=== PATIENT | female | born 1965 | race Caucasian/White ===

== ENCOUNTER 2017-08-09 05:05 | Inpatient (IN) | payer OTHER ==
[~2017-08-09] VITALS: Ht 162.6 cm; Wt 114.3 kg
--- NOTE | 2017-08-09 05:16 | NUR ---
MS RN ADMITTING NOTES: ADMITTED A 51 YO FEMALE PATIENT WHO CAME TO UNIT FOR SCHEDULED DAY SURGERY WITH DR BARTHOLOMEW : RIGHT TOTAL KNEE ARTHROPLASTY. PATIENT IS AOX4, ON ROOM AIR, BREATHING EVEN AND UNLABORED. APPEARS CALM AND IN NO DISTRESS. AMBULATORY. CONSENT FORMS SIGNED. ORIENTED TO UNIT. WILL CONT TO MONITOR.
[2017-08-09 05:20] VITALS: BP 134/64
[2017-08-09] MEDS ORDERED: CEFAZOLIN 1 GM ONE ×2 (05:22→05:51)
--- NOTE | 2017-08-09 05:45 | NUR ---
INSERTED RAC G20 HEPLOCK, WITH GOOD BLOOD RETURN.
[2017-08-09] MEDS ORDERED: KETOROLAC TROMETHAMINE INJ 30 MG/ML VIAL ONE (05:46)
[2017-08-09] MEDS ORDERED: BACITRACIN 50000 UNITS/VIAL ONE (05:46)
[2017-08-09] MEDS ORDERED: ANESTHESIA TRAY IN PYXIS 1 EA TRAY MC ONE ×2 (05:46→06:02)
[2017-08-09] MEDS ORDERED: ACETAMINOPHEN 325 MG TABLET PO STA (06:03)
[2017-08-09] MEDS ORDERED: ACETAMINOPHEN 325 MG TABLET ONE (06:09)
[2017-08-09] MEDS ORDERED: oxyCODONE IR immediate release 5 MG CAPSULE ONE (06:10)
[2017-08-09] MEDS ORDERED: CELECOXIB 100 MG CAPSULE ONE (06:10)
--- NOTE | 2017-08-09 06:10 | NUR ---
DR MONTOYA AT BEDSIDE, ASSESSED PATIENT. ORDERED FOR ACETAMINOPHEN 650 MG PO, CELEBREX 200 MG PO AND OXYCODONE IR 10 MG PO WITH SMALL SIP OF WATER. NOTED AND CARRIED OUT.
--- NOTE | 2017-08-09 06:15 | NUR ---
PATIENT WAS BROUGHT TO OR BY DR MONTOYA AND IGNACIO DAVID IN STABLE CONDITION.
[2017-08-09] MEDS ORDERED: MIDAZOLAM HCL 2 MG/2ML VIAL ONE (06:29)
[2017-08-09] MEDS ORDERED: oxyCODONE IR immediate release 5 MG CAPSULE PO PRN (06:30)
[2017-08-09] MEDS ORDERED: CELECOXIB 100 MG CAPSULE PO SCH (06:30)
[2017-08-09] MEDS ORDERED: TRANEXAMIC ACID 3,000 MG in SODIUM CHLORIDE IRRIG SOLUTION 70 ML IR ONE (07:30)
--- NOTE | 2017-08-09 07:30 | NUR ---
MS RN NOTES RECEIVED REPORT FROM NARESH MARQUEZ. PATIENT STILL IN THE OR FOR SURGERY-RIGHT TOTAL KNEE ARTHROPLASTY BY DR. BARTHOLOMEW.
[2017-08-09] MEDS ORDERED: HYDROMORPHONE INJ 2 MG/ML DISP.SYRIN ONE ×2 (07:32→08:55)
[2017-08-09] MEDS ORDERED: ESZO3TAB10 PO (07:35)
[2017-08-09] MEDS ORDERED: ALBU6.7H INH (07:35)
[2017-08-09] MEDS ORDERED: AMLO10TA2 PO (07:35)
[2017-08-09] MEDS ORDERED: LOSA1TAB39 PO (07:35)
[2017-08-09] MEDS ORDERED: TEMA15CA PO (07:35)
[2017-08-09] MEDS ORDERED: LISI10TA5 PO (07:35)
[2017-08-09] MEDS ORDERED: ALPR0.25 PO (07:35)
[2017-08-09] MEDS ORDERED: RIVA10TA PO (07:35)
[2017-08-09] MEDS ORDERED: IPRA3AMP IH (07:35)
[2017-08-09] MEDS ORDERED: BUPIVACAINE 0.5 % PF 150 MG/30 ML VIAL ONE (07:39)
[2017-08-09] MEDS ORDERED: FENTANYL PF 100MCG/2ML AMPUL ONE (09:21)
[2017-08-09 10:00] VITALS: BP 146/77
[2017-08-09 10:10] VITALS: BP 127/81
--- NOTE | 2017-08-09 10:10 | NUR ---
MS RN NOTES PATIENT BROUGHT IN FROM PACU, PATIENT IS AWAKE. A/O X4, S/P RIGHT TKA BY DR. BARTHOLOMEW TODAY. RIGHT KNEE DRESSING INTACT, SCD IN PLACE. PATIENT REPORTED PAIN IN RIGHT KNEE 9/10, MADE COMFORTABLE IN BED. ON OXYGEN AT 2L NC. IV IN RIGHT AC G20 PATENT AND INTACT, MYLES CATH IN PLACE, DRAINING TO GRAVITY. PLACE CALL LIGHT WITHIN REACH. INFORMED DR. ZHOU AND NOTIFIED DR. MUSA FOR CONSULT-PAIN MANAGEMENT. WILL CONT TO MONITOR.
[2017-08-09] MEDS ORDERED: COLACE 250 MG CAPSULE PO PRN (10:30)
[2017-08-09] MEDS ORDERED: ZOFRAN 4mg/2ML IV PRN (10:30)
[2017-08-09] MEDS ORDERED: DULCOLAX 10 MG/SUPP.RECT RC PRN (10:30)
[2017-08-09] MEDS ORDERED: TYLENOL 650 MG TABLET PO PRN (10:30)
[2017-08-09] MEDS ORDERED: SENOKOT 8.6 MG TABLET PO PRN (10:30)
[2017-08-09] MEDS ORDERED: AMBIEN 5 MG TABLET PO PRN (10:30)
[2017-08-09] MEDS ORDERED: OXYC-34 PO (10:47)
[2017-08-09] MEDS ORDERED: TIZA4TAB4 PO (10:47)
[2017-08-09] MEDS ORDERED: FLUT1BLS INH (10:47)
[2017-08-09] MEDS ORDERED: ASPI81TA2 PO (10:47)
[2017-08-09] MEDS ORDERED: HYDROCODONE/APAP 5/325MG 1 EACH TABLET PO PRN (11:00)
[2017-08-09] MEDS: IV D5/0.45 NACL 1,000 ML IV PRN ×2 (11:26→21:51)
--- NOTE | 2017-08-09 12:13 | NUR ---
RECEIVED PHONE CALL FROM DR. MUSA/PAIN MANAGEMENT. REVIEWED HOME MEDICATIONS AND CURRENT PATIENT CONDITION WITH THE MD, WITH NEW ORDERS MEDICATIONS FOR PAIN. PATIENT MADE AWARE.
[2017-08-09] MEDS ORDERED: HYDROMORPHONE INJ 2 MG/ML DISP.SYRIN SQ ONE (12:24)
[2017-08-09] MEDS ORDERED: TIZANIDINE HCL 4 MG TABLET PO PRN (12:30)
[2017-08-09] MEDS ORDERED: HYDROMORPHONE INJ 2 MG/ML DISP.SYRIN SQ PRN ×2 (12:30→14:00)
[2017-08-09] MEDS ORDERED: HYDROMORPHONE 1 MG/1 ML DISP.SYRIN SQ ONE (12:30)
[2017-08-09] MEDS ORDERED: HYDROMORPHONE 1 MG/1 ML DISP.SYRIN SQ PRN (12:30)
--- NOTE | 2017-08-09 12:47 | NUR ---
DILAUDID 1MG SQ GIVEN AT 1247, DID NOT SAVE BY MISTAKE. PATIENT RECEIVED DOSE X 1 NOW ORDERED.
[2017-08-09] MEDS: oxyCODONE IR immediate release 5 MG CAPSULE PO PRN ×3 (13:49→23:16)
[2017-08-09] MEDS: ANCEF 1 G in IV D5W 50 ML IV SCH ×2 (15:36→23:47)
--- NOTE | 2017-08-09 15:37 | NUR ---
PATIENT IS SEEN BY PT FOR EVAL. CPM MACHINE IN PLACE SET UP TO 0-30DEGREES PER PT. WILL CONT TO MONITOR.
[2017-08-09 16:00] VITALS: BP 156/74
--- NOTE | 2017-08-09 16:38 | NUR ---
PATIENT IS SEEN BY RD TODAY, RECOMMEND CARDIAC DIET. MD INFORMED.
[2017-08-09] MEDS: ASPIRIN 325 MG TABLET PO SCH (18:14)
--- NOTE | 2017-08-09 18:30 | NUR ---
MS RN CLOSING NOTES PATIENT IN BED, AWAKE. A/O X4. S/P RIGHT TKA TODAY BY DR. BARTHOLOMEW, DRESSING IN RIGHT KNEE INTACT, CPM MACHINE IN PLACE, TOLERATING WELL. IV LEFT HAND G22 PATENT AND INTACT, IV D5 1/2 NS INFUSING AT 125ML/HR. PER PATIENT DILAUDID 1MG SQ Q3PRN IS INEFFECTIVE RELIEVING HER RIGHT KNEE PAIN. PATIENT IS BEING FOLLOWED BY DR. MUSA FOR PAIN MANAGEMENT AND WILL BE PLACE ON LOG LOADER DILAUDID ORDERED. WILL CONT TO MEDICATE PATIENT WITH CURRENT PAIN MEDICATION UNTIL LOG LOADER DILAUDID WILL BE AVAILABLE. WILL ENDORSE TO TOUR SALES REPRESENTATIVE RN FOR SHAQUILLE.
--- NOTE | 2017-08-09 19:30 | NUR ---
MS RN OPENING NOTES: PATIENT IN BED, AOX4, ON O2 AT 2 LPM VIA NC, BREATHING EVEN AND UNLABORED. BREATH SOUNDS CLEAR TO AUSCULTATION. PIV OVER L HAND G22 INTACT AND PATENT, INFUSING WELL WITH D51/2 NS RUNNING AT 125 ML/HR. MYLES CATHETER IN PLACE DRAINING CLEAR YELLOW URINE. PATIENT HAS R LEG ON CPM MACHINE SET TO 30 DEG, WITH CLEAN INTACT DRESSING COVERED IN SHIRLEY BANDAGE. PROVIDED FOR COMFORT AND SAFETY. BED IN LOWEST AND LOCKED POSITION, SIDERAILS UPX3, CALL LIGHT WITHIN REACH. WILL CONT TO MONITOR.
--- NOTE | 2017-08-09 19:38 | NUR ---
Patient is alert, she lives with spouse and family in [place]. Prior to admission, patient was ambulatory and independent with adl's. Has no DME or homehealth reported. Family is involved and supportive with plan of care. Plan is to return home, will benefit from home PT and walker. Patient will need CPM machine when d/c. Addendum: 08/09/17 at 1939 by ALIS RAMOS RN Amended: Links added.
[2017-08-09 20:00] VITALS: BP 165/100
[2017-08-09] MEDS: HYDROMORPHONE MDV 30 MG in IV NS 0.9% 15 ML, PCA TOTAL VOLUME 1 BAG IV PRN ×3 (20:26)
--- NOTE | 2017-08-09 20:26 | NUR ---
RN NOTES: PATIENT STARTED ON INVESTIGATION MANAGER PUMP OF DILAUDID 1 MG/1 ML CONCENTRATION, IN 30 ML BAG. DEMAND DOSE IS 0.2 MG , LOCK OUT: 10 MINS, 4 HR LIMIT: 5 MG. EDUCATED PATIENT ON USE OF INVESTIGATION MANAGER PUMP. REQUESTED O2 SAT MONITOR FROM RT.
[2017-08-09] MEDS: LISINOPRIL (10MG) 10 MG TABLET PO SCH (20:49)
[2017-08-09] MEDS: FLUTICASONE/VILANTEROL 1 EACH BLST.W.DEV IH SCH (21:01)
--- NOTE | 2017-08-09 21:14 | NUR ---
RN NOTES: SPOKE TO DR MUSA TO VERIFY IF PRN OXY IR 15 MG PO Q 3 PRN AND DILAUDID 1 MG IV Q 3 HR PRN SHOULD BE CONTINUED SINCE PATIENT HAS BEEN STARTED ON HELP AID HYDROMORPHONE ORDERED. PER DR MUSA, HE ENCOURAGES TO USE THE PRN MEDS EVEN WITH THE HELP AID PUMP, MUST BE SPACED AT LEAST AN HOUR APART, EACH ONE ALTERNATE Q 3 HRS NEEDED. NOTED AND CARRIED OUT.
[2017-08-09 22:00] VITALS: BP 164/90
[2017-08-09] MEDS: HYDROMORPHONE INJ 2 MG/ML DISP.SYRIN IV PRN (22:07)
--- NOTE | 2017-08-09 22:12 | NUR ---
RN NOTES: PATIENT STILL COMPLAINING OF 9/10 PAIN OVER R KNEE, SAID THAT SHE HAS PRESSED HER LEATHER DRESSER ABOUT 10X SINCE IT WAS STARTED AT 2025 PM. ADMINISTERED DILAUDID 1 MG IV PRN. WILL CONT TO MONITOR,
--- NOTE | 2017-08-09 22:45 | NUR ---
RN NOTES: DR MUSA AT BEDSIDE TO ASSESS PATIENT. PER MD, OXY IR PO CAN BE GIVEN AT 2315.
[2017-08-09] MEDS ORDERED: MAG HYDROX/AL HYDROX/SIMETH 30 ML UDC PO PRN (23:00)
[2017-08-09] MEDS ORDERED: MAGNESIUM HYDROXIDE 30 ML UDC PO PRN (23:00)
[2017-08-09] MEDS ORDERED: diphenhydrAMINE HCL 25 MG CAPSULE PO PRN (23:00)
[2017-08-09] MEDS ORDERED: PANTOPRAZOLE 40 MG TABLET.DR PO ONE (23:45)
[2017-08-09] MEDS: PANTOPRAZOLE 40 MG TABLET.DR PO SCH (23:47)
[2017-08-10] VITALS (9 sets, daily range): BP systolic 118–166; BP diastolic 53–99
[2017-08-10] MEDS: HYDROMORPHONE INJ 2 MG/ML DISP.SYRIN IV PRN ×8 (01:23→23:24)
--- NOTE | 2017-08-10 01:34 | NUR ---
RN NOTES: SPOKE TO DR SINCLAIR RE PATIENT'S BP JUST RECHECKED AT 0100 SBP STILL AT 166 MMHG. INFORMED MD THAT PATIENT IS ON DILAUDID TRACK OILER PUMP, AND THAT DR MUSA HAS ORDERED PRN OXY IR AND DILAUDID 1 MG IV PRN Q3HR. PER DR SINCLAIR, GIVE 1 MORE MG OF DILAUDID NOW, AND THEN RECHECKED AFTER AN HOUR, IF BP STILL HIGH, GIVE HYDRALAZINE 10 MG PO Q 6 PRN FOR SBP >160MMHG. NOTED AND CARRIED OUT.
[2017-08-10] MEDS ORDERED: HYDROMORPHONE INJ 2 MG/ML DISP.SYRIN ONE ×2 (01:53→23:18)
[2017-08-10] MEDS ORDERED: HYDROMORPHONE INJ 2 MG/ML DISP.SYRIN IV ONE (02:00)
[2017-08-10] MEDS ORDERED: HYDROMORPHONE 1 MG/1 ML DISP.SYRIN IV ONE (02:00)
[2017-08-10] MEDS ORDERED: hydrALAZINE HCL 10 MG TABLET PO PRN (02:00)
--- NOTE | 2017-08-10 02:05 | NUR ---
RN NOTES: ADMINISTERED 1 MG DILAUDID IV ONE TIME DOSE FOR NOW.
[2017-08-10] MEDS: oxyCODONE IR immediate release 5 MG CAPSULE PO PRN ×7 (03:11→22:04)
[2017-08-10] MEDS ORDERED: hydrALAZINE HCL 10 MG TABLET ONE (03:22)
--- NOTE | 2017-08-10 03:25 | NUR ---
RN NOTES: RECHECKED BP AN HOUR AFTER ADDITIONAL DILAUDID 1 MG DOSE, BP 163/74. ADMINISTERED HYDRALAZINE 10 MG PO PRN. WILL CONT TO MONITOR.
[2017-08-10] MEDS: IV D5/0.45 NACL 1,000 ML IV PRN ×2 (06:01→14:20)
--- NOTE | 2017-08-10 06:11 | NUR ---
RN NOTES: ADMINISTERED OXY IR 15 MG PO PRN FOR R KNEE PAIN OF 6/10. BP CHECKED AT 142/99, HR: 84. O2 SAT 98%
[2017-08-10 06:43] LABS: BASOPHILS % (AUTO) 0.2 % (0.0-2.0); HEMATOCRIT 34 % (33-45); HEMOGLOBIN 11.4 g/dL (11.5-14.8); LYMPHOCYTES # (AUTO) 1.9 /CMM (0.8-4.8); LYMPHOCYTES % (AUTO) 19.9 % (20.0-44.0); MEAN CORPUSCULAR HEMOGLOBIN 35 PG (26.0-33.0); MEAN CORPUSCULAR HGB CONC 34 g/dl (31.0-36.0); MEAN CORPUSCULAR VOLUME 103 fL (82-100); MONOCYTES % (AUTO) 10.8 % (2.0-12.0); NEUTROPHILS # (AUTO) 6.4 /CMM (1.8-8.9); NEUTROPHILS % (AUTO) 69.1 % (43.0-81.0); PLATELET COUNT (AUTO) 315 /CMM (150-450); RDW COEFFICIENT OF VARIATION 15.7 (11.5-15.0); RED BLOOD CELL COUNT(AUTO) 3.29 MIL/uL (4.0-5.2); WHITE BLOOD COUNT (AUTO) 9.3 K/uL (4.3-11.0)
--- NOTE | 2017-08-10 06:48 | NUR ---
MS RN CLOSING NOTES: PATIENT IN BED, AOX4, ON O2 AT 3 LPM VIA NC, BREATHING EVEN AND UNLABORED, WITH CONT O2 SAT MONITORING AT 98%. PIV OVER R HAND G 22 INTACT AND INFUSING WELL WITH D5 1/2 NS RUNNING AT 125 ML/HR. MYLES CATHETER IN PLACE DRAINING CLEAR YELLOW URINE. GRADER OPERATOR PUMP OF HYDROMORPHONE (CONCENTRATION OF 1 MG/ML) ATTACHED TO PATIENT, PATIENT VERBALIZED UNDERSTANDING OF USE. DUE MEDS GIVEN. PROVIDED FOR COMFORT AND SAFETY. BED IN LOWEST AND LOCKED POSITION, SIDERAILS UP X3. CALL LIGHT WITHIN REACH. WILL ENDORSE TO AM RN FOR SHAQUILLE.
[2017-08-10] MEDS: AMLODIPINE BESYLATE 10 MG TABLET PO SCH (08:33)
[2017-08-10] MEDS: DOCUSATE SODIUM 100 MG CAPSULE PO SCH ×2 (08:34→16:35)
[2017-08-10] MEDS: ASPIRIN 325 MG TABLET PO SCH ×2 (08:34→16:35)
[2017-08-10] MEDS: LISINOPRIL (10MG) 10 MG TABLET PO SCH (08:34)
[2017-08-10] MEDS: FLUTICASONE/VILANTEROL 1 EACH BLST.W.DEV IH SCH ×2 (09:00→11:34)
--- NOTE | 2017-08-10 18:39 | NUR ---
M/S RN - End Notes Patient awake, A/O x 4, POD#1 right TKA with dressing C/D/I, first dressing change tomorrow per Md. Engle catheter in place draining clear yellow output. Patient did well with PT treatment and CPM with 50 deg flexion. Currently on Dilaudid HOTEL ADMINISTRATIVE ASSISTANT with 0.2 mg demand dose at 10 minute lockout and a 5 mg 4 hour limit, IV Dilaudid and Oxycodone IR q3h p.r.n. given for breakthrough medications which is effective in managing her pain. All needs attended and met. Will continue with current medical management.
--- NOTE | 2017-08-10 19:30 | NUR ---
MS RN note PATIENT IN BED, AOX4, ON O2 AT 2 LPM VIA NC, BREATHING EVEN AND UNLABORED. BREATH SOUNDS CLEAR TO AUSCULTATION. PIV OVER L HAND G22 INTACT AND PATENT, INFUSING WELL WITH D51/2 NS RUNNING AT 125 ML/HR. MYLES CATHETER IN PLACE DRAINING CLEAR YELLOW URINE. PATIENT HAS R LEG ON CPM MACHINE SET TO 50 DEG, WITH CLEAN INTACT DRESSING COVERED IN SHIRLEY BANDAGE. PROVIDED FOR COMFORT AND SAFETY. BED IN LOWEST AND LOCKED POSITION, SIDERAILS UPX3, CALL LIGHT WITHIN REACH. WILL CONT TO MONITOR.
[2017-08-10] MEDS ORDERED: KEY,NONCONTROL,TO KEEP IN PYXI 1 EA MC ONE (20:33)
[2017-08-10] MEDS: PANTOPRAZOLE 40 MG TABLET.DR PO SCH (20:50)
[2017-08-10] MEDS: HYDROMORPHONE MDV 30 MG in IV NS 0.9% 15 ML, PCA TOTAL VOLUME 1 BAG IV PRN ×3 (21:05)
[2017-08-11] MEDS ORDERED: HYDROMORPHONE INJ 2 MG/ML DISP.SYRIN ONE (02:27)
[2017-08-11] MEDS: HYDROMORPHONE INJ 2 MG/ML DISP.SYRIN IV PRN ×5 (02:35→16:39)
[2017-08-11] MEDS: IV D5/0.45 NACL 1,000 ML IV PRN (04:03)
[2017-08-11] MEDS: oxyCODONE IR immediate release 5 MG CAPSULE PO PRN ×3 (04:14→14:09)
--- NOTE | 2017-08-11 08:00 | NUR ---
MS RN AM NOTES PATIENT IN BED, AOX4, O2 AT 2L/MIN VIA N/C.BREATHING EVEN AND UNLABORED. BREATH SOUNDS CLEAR TO AUSCULTATION. PIV OVER L HAND G22 INTACT AND PATENT, INFUSING WELL WITH D51/2 NS RUNNING AT 125 ML/HR. MYLES CATHETER IN PLACE DRAINING CLEAR YELLOW URINE. ON FISHER DILAUDID WITH PAIN MGT WITH DILAUDID IV ND OXYIR .S/P RT TKA WITH CLEAN INTACT DRESSING COVERED IN SHIRLEY BANDAGE. PROVIDED FOR COMFORT AND SAFETY. BED IN LOWEST AND LOCKED POSITION, SIDERAILS UPX3, CALL LIGHT WITHIN REACH. WILL CONT TO MONITOR.
[2017-08-11] MEDS: AMLODIPINE BESYLATE 10 MG TABLET PO SCH (08:48)
[2017-08-11] MEDS: ASPIRIN 325 MG TABLET PO SCH (08:50)
[2017-08-11] MEDS: LISINOPRIL (10MG) 10 MG TABLET PO SCH (08:50)
[2017-08-11] MEDS: FLUTICASONE/VILANTEROL 1 EACH BLST.W.DEV IH SCH (08:51)
[2017-08-11] MEDS: DOCUSATE SODIUM 100 MG CAPSULE PO SCH (08:51)
[2017-08-11 11:52] LABS: CALCIUM, SERUM 8.4 mg/dL (8.5-10.1); CREATININE 0.7 mg/dL (0.6-1.3); POTASSIUM 4.1 mmol/L (3.5-5.1)
[2017-08-11 16:00] VITALS: BP 138/72
[2017-08-11] MEDS ORDERED: RIVAROXABAN 10 MG TABLET PO SCH (17:00)
--- NOTE | 2017-08-11 17:01 | NUR ---
DISCHARGED PT TO [facility] VIA AMBULANCE WITH STABLE V/S.REMOVED MYLES CATHETER AND LT HAND IV H/L PT TOLERATED WELL.MYLES BAG URINE OUTPUT WAS 200 ML YELLOW URINE IN AMT.DC'D EXTRUSION OPERATOR DILAUDID.WILL DISPENSE DILAUDID IN THE DISPENSER WITH WITNESS.WILL NOTIFY PHARMACY.
[2017-08-12] MEDS ORDERED: ASPIRIN 81 MG TAB.CHEW PO SCH (09:00)
[2017-08-12] MEDS ORDERED: RIVAROXABAN 10 MG TABLET PO SCH ×2 (09:00→12:19)
== END 2017-08-11 16:56 | DRG 470 ==
LOC: DS 05:05 → MED 05:07
PROVIDERS: ADMIT Specialist; ATTEND Specialist
PROC: 0SRC0J9 Replacement of Right Knee Joint with Synthetic Substitute, Cemented, Open Approach (ICD-10-PCS; principal; 2017-08-09 07:27)
DX: M12.561 Traumatic arthropathy, right knee (principal); E44.1 Mild protein-calorie malnutrition; Z68.41 Body mass index [BMI] 40.0-44.9, adult; E66.01 Morbid (severe) obesity due to excess calories; J45.909 Unspecified asthma, uncomplicated; D64.9 Anemia, unspecified; G47.00 Insomnia, unspecified; I10 Essential (primary) hypertension; Z86.711 Personal history of pulmonary embolism
CPT/HCPCS: 36415; 80048-TC; 85025-TC; 86850-TC; 86921-TC; 87081-TC; 88305-TC; 88311-TC; 97110-TC; 97116-TC; 97530-TC; 97760-TC; A4216; A4217; A4606; A6402; C1713; J0360; J0690; J1100; J1170; J1885; J2250; J2405; J2704; J3010; J3490; J7060; Z7610